=== PATIENT | female | born 1985 | race Caucasian/White ===

== ENCOUNTER 2016-07-24 09:15 | Emergency (ER) | payer OTHER ==
[2016-07-24 09:22] VITALS: BP 150/80
--- NOTE | 2016-07-24 09:26 | ED ANKLE/FOOT INJURY COMPLAINT ---
History of Present Illness General Chief Complaint: General Adult Stated Complaint: BIBA, FALL - R ANKLE PAIN Source: patient Exam Limitations: no limitations Vital Signs & Intake/Output Vital Signs & Intake/Output Vital Signs Date Time Temp Pulse Resp B/P Pulse O2 O2 Flow FiO2 Ox Delivery Rate 07/24 0922 96.3 84 16 150/80 97 Room Air Allergies Coded Allergies: Cephalosporins (Severe, ANAPHYLAXIS 07/24/16) Triage Note: PT BIBA FROM WORK S/P ROLLING ANKLE. C/O RT ANKLE PAIN, NOTED SWELLING TO AREA. ICE APPLIED FROM EMS. +CMS. Triage Nurses Notes Reviewed? yes : No Patient currently breastfeeds: No HPI: Patient is a 31 year old female presents complaining of right ankle pain s/p inversion injury. Patient was at work, stepped on a roll of tape causing the injury this morning. Patient felt a pop in her ankle when this occurred. Pain is moderate, worse with movement and palpation. Denies head injury, headache, loss of consciousness, numbness. Past History Travel History Traveled to [place] past 21 day No Medical History Any Pertinent Medical History? see below for history Renal: PCOS KIDNEY STONES Surgical History Surgical History: non-contributory Psychosocial History What is your primary language Tajik Tobacco Use: Never used Family History Hx Contributory? No Review of Systems Review of Systems Constitutional: Reports: no symptoms. Cardiovascular: Denies: chest pain. GI: Denies: abdominal pain. Musculoskeletal: Reports: see HPI, back pain (chronic). Skin: Reports: no symptoms. Neurological/Psychological: Denies: headache, numbness, paresthesia. Hematologic/Endocrine: Denies: bruising, bleeding. Immunologic/Allergic: Denies: splenectomy. Physical Exam Physical Exam General Appearance: well developed/nourished, alert, awake Head: atraumatic, normal appearance Eyes: Bilateral: normal appearance. Ears, Nose, Throat: hearing grossly normal Neck: normal inspection, supple, full range of motion Cardiovascular/Respiratory: no respiratory distress Back: normal inspection, normal range of motion, no vertebral tenderness Leg/Knee/Thigh Left: normal range of motion, normal inspection, NONTENDER Leg/Knee/Thigh Right: normal range of motion, normal inspection, NONTENDER Ankle Left: normal inspection, normal range of motion Ankle Right: TENDERNESS RIGHT LATERAL MALLEOLUS WITH MODERATE SWELLING. fULL RANGE OF MOTION. jOINT STABLE. Foot Right: normal inspection, normal range of motion, NONTENDER. dORSALIS PEDIS PULSE AND POSTERIOR TIBIALIS PULSES 2+ Neuro/Vascular: normal motor function, normal sensation Tendon: normal tendon function Progress Differential Diagnosis: fracture, dislocation, sprain, contusion Plan of Care: Orders Procedure Date/time Status Durable Medical Equipment 07/24 1051 Active Patient declined pain medication on initial exam. 07/24/2016 10:41:10 AM: Results of x-ray discussed with patient. Patient's ankle reevaluated, mild tenderness medially. Low suspicion fracture but given x-ray reading will treat conservatively, place and splint, on crutches and have follow -up with orthopedics. (KASSI CHACON,MARY) Diagnostic Imaging: Viewed by Me: Radiology Read. Discussed w/RAD: Radiology Read. Radiology Impression: PATIENT: NERISSA OAKLEY PRESENT AGE: 31 PATIENT ACCOUNT NO: [id number] : 84 LOCATION: [facility] ORDERING PHYSICIAN: MARY CHACON SERVICE DATE: 07/24/16 EXAM TYPE: RAD - XRY-ANKLE 3 OR MORE VIEWS R EXAMINATION: XR ANKLE, RIGHT CLINICAL INFORMATION: Injury evaluate for fracture lateral ankle pain COMPARISON: None TECHNIQUE: AP, lateral, and mortise views of the right ankle. FINDINGS: There is soft tissue swelling laterally about the fibula. There is a small focus of bony prominence over the caudal medial aspect of the talus of uncertain clinical significance. It is possible this could reflect projectional artifact but avulsion fracture cannot be excluded. The surrounding bone and soft tissues are otherwise unremarkable IMPRESSION: Question medial talus fracture versus projectional artifact. Correlation with the location of the patient's symptoms should help clarify DICTATED BY: CHARITY MODI MD DATE/TIME DICTATED:07/24/161014 BUS MECHANIC:JOVANNI DATE/TIME TRANSCRIBED:07/24/161014 CONFIDENTIAL, DO NOT COPY WITHOUT APPROPRIATE AUTHORIZATION. <Electronically signed in Other Vendor System> SIGNED BY: CHARITY MODI MD 07/24/16 1021 Departure Departure Time of Disposition: 1041 Disposition: HOME OR SELF CARE Condition: Stable Clinical Impression Primary Impression: Right ankle sprain Secondary Impressions: Fracture, talus closed Referrals: GERHARD SHOOK MD Additional Instructions: Rest, elevate, wear splint until he follow-up with the orthopedist(Dr. Shook). Call today for appointment to be seen within one week. Return to the emergency department if numbness, pain uncontrollable, or worsening of symptoms. Departure Forms: Customer [employer] Employee Industrial Accident General Discharge Information Procedures Splinting Location: right ankle Hand-Made Type: orthoglass Splint: posterior short leg Splint Applied By: splint applied by me Pre-Proc Neuro Vasc Exam: normal Post-Proc Neuro Vasc Exam: normal
--- NOTE | 2016-07-24 10:21 | RADIOLOGY REPORT ---
EXAMINATION: XR ANKLE, RIGHT CLINICAL INFORMATION: Injury evaluate for fracture lateral ankle pain COMPARISON: None TECHNIQUE: AP, lateral, and mortise views of the right ankle. FINDINGS: There is soft tissue swelling laterally about the fibula. There is a small focus of bony prominence over the caudal medial aspect of the talus of uncertain clinical significance. It is possible this could reflect projectional artifact but avulsion fracture cannot be excluded. The surrounding bone and soft tissues are otherwise unremarkable IMPRESSION: Question medial talus fracture versus projectional artifact. Correlation with the location of the patient's symptoms should help clarify
== END 2016-07-24 11:14 ==
LOC: ERH 09:15
DX: S92.101A Unspecified fracture of right talus, initial encounter for closed fracture (principal); S93.401A Sprain of unspecified ligament of right ankle, initial encounter; X50.9XXA Other and unspecified overexertion or strenuous movements or postures, initial encounter; Y93.01 Activity, walking, marching and hiking; Y92.9 Unspecified place or not applicable
CPT/HCPCS: 73610-RT